=== PATIENT | male | born 1940 | race African-American/Black ===

== ENCOUNTER 2016-08-28 15:51 | Inpatient (IN) | payer MEDICARE, BC ==
--- NOTE | ~2016-08-28 | HP ---
History And Physical [facility] [address] [place]. [address] NAME: JOSE WILLETT : 40 STATUS : ADM Mariaelena PAT#: [id number] AGE: 75 ADM/REG DATE : 08/28/16 MR#: [id number] REPORT SERV DATE: 08/28/16 DICTATED BY: GEOVANI BARNETT DATE: 08/28/16 REPORT STATUS : Draft TRANSCRIBED BY: MODAgustín DATE: 08/28/16 DATE OF ADMISSION: 08/28/2016 POINT OF ENTRY: [facility] Emergency Department. PRIMARY SUPERVISOR HOT DIP TINNING: Symone Leslie M.D. PRIMARY COMMUNITY OUTREACH WORKER: Dr. Nguyen. CHIEF COMPLAINT: Shortness of breath. HISTORY OF PRESENT ILLNESS: Mr. Willett is a 75-year-old gentleman with a history of chronic kidney stage 4, baseline creatinine of approximately 2 to 3 as well as coronary artery disease, prior coronary artery bypass grafting, and presumed history of chronic diastolic congestive heart failure who presents to the emergency room today with reports of shortness of breath. The patient states for the past four to five days he has noticed shortness of breath, primarily dyspnea on exertion as well as orthopnea and PND. The patient also has endorsed some lower extremity edema, nonproductive cough, wheezing. He denies any fevers, night sweats, chills. Denies any chest pain or palpitations. Also feels as if his abdomen is becoming more bloated and tense. He reports compliance with his Lasix as well as fluid and sodium restriction at home. The patient presented to [facility] Emergency Department today with reports of shortness of breath and was told he had some mild fluid on his lungs but was discharged to home. The patient presented back to [facility] for persisting complaints of shortness of breath. Initial evaluation in the emergency department notable for a chest x-ray that is clear. BUN is 39, creatinine 2.72, which is within his baseline. BNP is elevated at 615. Troponin is elevated at 0.63. EKG is nonischemic. The patient was subsequently admitted to the Hospitalist Service for further evaluation and management, however, without being given any Lasix for his elevated BNP level. REVIEW OF SYSTEMS: Comprehensive review of system otherwise negative unless listed in history of present illness. PREVIOUS MEDICAL HISTORY: 1. Chronic kidney stage 4, baseline creatinine of approximately 2.2 to 2.8. 2. Coronary artery disease with prior coronary artery bypass grafting. 3. Hypertension. 4. Hyperlipidemia. 5. Pulmonary hypertension. 6. Ftn-xeubzvo-nruztcqkx diabetes mellitus type 2. 7. Gout. History And Physical [address] [address] NAME: JOSE WILLETT : 40 STATUS : ADM Mariaelena PAT#: [id number] AGE: 75 ADM/REG DATE : 08/28/16 MR#: [id number] REPORT SERV DATE: 08/28/16 DICTATED BY: GEOVANI BARNETT DATE: 08/28/16 REPORT STATUS : Draft TRANSCRIBED BY: MODAgustín DATE: 08/28/16 8. COPD, not on home oxygen. 9. Presumed chronic diastolic congestive heart failure. SURGICAL HISTORY: 1. Coronary artery bypass grafting. 2. Parathyroidectomy. ALLERGIES: NO KNOWN DRUG ALLERGIES. HOME MEDICATIONS: 1. Amlodipine 5 mg daily. 2. Aspirin 81 mg daily. 3. Atorvastatin 40 mg at bedtime. 4. Rocaltrol 0.25 mcg Friday, Friday, and Friday. 5. Colchicine 0.6 mg p.r.n. 6. Diltiazem ER 120 mg daily. 7. Cardura 4 mg b.i.d. 8. Uloric 40 mg daily. 9. Lasix 40 mg b.i.d. 10.Lopressor 12.5 mg b.i.d. 11.Starlix 60 mg t.i.d. 12.Vitamin E 400 units daily. SOCIAL HISTORY: Denies any tobacco, alcohol, or illicits. FAMILY MEDICAL HISTORY: Mother with diabetes. Father with coronary artery disease in his 50s. Siblings with diabetes. LABS AND IMAGIN. White count is 5.5, hemoglobin is 8.9, hematocrit is 26.5, and platelet count is 203. INR is 1.0. 2. Sodium is 142, potassium 4.1, chloride 109, carbon dioxide 23, BUN 39, creatinine 2.72, glucose is 175, calcium is 8.4, and magnesium is 2.5. 3. Troponin 0.63. BNP is 615. 4. Chest x-ray per my review shows no acute cardiopulmonary abnormality. Does show some COPD type changes. 5. EKG per my review shows sinus tachycardia with a right bundle-branch block with some evidence of right ventricular hypertrophy but no evidence of any acute ischemic infarction. Of note, this EKG is largely unchanged from his prior EKG in 2015. PHYSICAL EXAMINATION: VITAL SIGNS: Temperature is 98.2 degrees Fahrenheit, pulse is 105, respirations 16, and saturating 97% on room air. Blood pressure is 177/84. GENERAL: The patient is awake, alert, in no acute distress. Resting comfortably in bed. He is a well-developed, well-nourished, elderly male. HEENT: Atraumatic and normocephalic. Moist mucous membranes. Pupils are equal, round, reactive to light and accommodation. Extraocular eye movements intact. No scleral icterus. History And Physical [address] [address] NAME: JOSE WILLETT : 40 STATUS : ADM Mariaelena PAT#: [id number] AGE: 75 ADM/REG DATE : 08/28/16 MR#: [id number] REPORT SERV DATE: 08/28/16 DICTATED BY: GEOVANI BARNETT DATE: 08/28/16 REPORT STATUS : Draft TRANSCRIBED BY: AGUSTÍN DATE: 08/28/16 NECK: No jugular venous distention. No carotid bruits. CARDIAC: Regular rate and rhythm. A 2/6 systolic murmur heard best over the left lower sternal border. LUNGS: Does have some mild inspiratory rales in the bilateral bases. ABDOMEN: Obese, soft, nontender, nondistended. Good bowel sounds. No rebound, guarding, or rigidity. EXTREMITIES: Warm and well perfused. No cyanosis or clubbing. Does have 2+ pitting edema bilaterally. SKIN: Warm and dry. PSYCH: Affect appropriate. NEURO: Alert and oriented x3. Cranial nerves 2 through 12 grossly intact. Speech is normal. Gait is not assessed. ASSESSMENT: Mr. Willett is a 75-year-old gentleman with history of hypertension, chronic kidney disease 4, diabetes, as well as presumed chronic diastolic congestive heart failure, who presents to emergency room today with reports of shortness of breath and volume overload. PROBLEM LIST: 1. Acute on chronic diastolic congestive heart failure. 2. Chronic kidney disease, stage 4. 3. Elevated troponin level. 4. Shortness of breath. 5. Hypertension. 6. Dmh-tjabsxi-ureibepkf diabetes mellitus type 2. PLAN: 1. Acute on chronic diastolic congestive heart failure. We will convert the patient's oral Lasix over to IV Lasix, place on fluid and sodium restriction. We will consult Cardiology for assistance. We will repeat an echocardiogram as his last one was in 2014, which at that time, showed preserved ejection fraction with some mild pulmonary hypertension but no comment on diastolic dysfunction. 2. Chronic kidney disease stage 4, appears to be within his baseline. We will continue to monitor as we diurese. 3. Elevated troponin level. The patient denies chest pain. His EKG is nonischemic. I suspect this is likely due to acute on chronic diastolic congestive heart failure as well as his underlying CKD. We will continue to trend out cardiac enzymes. Continue the patient's aspirin, statin, as well as beta tami. Dr. Goins of the emergency department contacted Cardiology, and they did not recommend heparin drip at this time. 4. Diabetes. Place him on level 2 insulin sliding scale. 5. Hypertension. Continue patient's home antihypertensives as well as IV hydralazine p.r.n. 6. DVT prophylaxis. Heparin subcu. DICTATION ENDS HERE History And Physical [address] [address] NAME: JOSE WILLETT : 40 STATUS : ADM Mariaelena PAT#: [id number] AGE: 75 ADM/REG DATE : 08/28/16 MR#: [id number] REPORT SERV DATE: 08/28/16 DICTATED BY: GEOVANI BARNETT DATE: 08/28/16 REPORT STATUS : Draft TRANSCRIBED BY: AGUSTÍN DATE: 08/28/16 JOSEY/AGUSTÍN Geovani Barnett MD / [id number] CC: Arnav Montiel Jr, MD David Phillips, M.D. Ondrej J Lisy, M.D.
--- NOTE | ~2016-08-28 | CN ---
Consultation Report [facility] [address] [place]. [address] NAME: JOSE VANEGAS : 40 STATUS : ADM Mariaelena PAT#: [id number] AGE: 75 ADM/REG DATE : 08/28/16 MR#: [id number] REPORT SERV DATE: 08/29/16 DICTATED BY: MARIOLA QUISPE DATE: 08/29/16 REPORT STATUS : Draft TRANSCRIBED BY: MODAgustín DATE: 08/29/16 CARDIOLOGY CONSULT DATE OF CONSULTATION: REFERRING REASON: Heart failure exacerbation and elevated troponin. HISTORY OF PRESENT ILLNESS: This is a pleasant 75-year-old gentleman, well known to me from [facility], who presented to the emergency room for several days lasting dyspnea on exertion and lower extremity edema. He was found to be in heart failure exacerbation, admitted to Hospitalist Service. He was also found to have a mild troponin elevation. The patient denied any chest pain whatsoever. He denied any palpitations, syncope, fever, or chills. He is still very physically active. He was getting more tired after he was doing lawn mowing a few days ago. Of note, the patient has known coronary artery disease with remote history of CABG two vessel in 1999, with negative nuclear cardiac stress in 2013 and preserved systolic function with EF 60% in 2014 with vfke-mi-bvvbkvoi TR and some diastolic dysfunction. He is also status post atrial flutter ablation in 2014, but remained in normal sinus rhythm with some chronic right bundle-branch block. The patient remains hemodynamically stable. He is ambulating now in the CDU without any difficulties or shortness of breath. Unfortunately, he has underlying stage 4 chronic kidney disease now with creatinine of 2.5 and BUN 39. He started diuresing and was put on fluid restriction. REVIEW OF SYSTEMS: The rest of the review of systems is negative. PAST MEDICAL HISTORY: 1. Coronary artery disease with history of two-vessel CABG in 1999, with negative nuclear cardiac stress test for ischemia in 2013. 2. Preserved systolic function with EF 60% by echo in 2014 with hmbv-xu-foefakjs TR and some diastolic dysfunction. 3. Stage 4 chronic kidney disease. 4. Hypertension, hyperlipidemia, and diabetes mellitus. 5. Chronic right bundle-branch block. 6. History of atrial flutter ablation by Dr. Bradley in 2014. 7. Anticoagulation stopped by Dr. Bradley in 2016. 8. Peripheral artery disease. ALLERGIES: NO KNOWN DRUG ALLERGIES. SOCIAL HISTORY: The patient is single. He lives independently. Very active. He quit smoking 30 years ago. Smoked for few years. Denies drinking, alcohol, or using street drugs. Consultation Report [facility] [address] [place]. [address] NAME: JOSE VANEGAS : 40 STATUS : ADM Mariaelena PAT#: [id number] AGE: 75 ADM/REG DATE : 08/28/16 MR#: [id number] REPORT SERV DATE: 08/29/16 DICTATED BY: MARIOLA QUISPE DATE: 08/29/16 REPORT STATUS : Draft TRANSCRIBED BY: AGUSTÍN DATE: 08/29/16 FAMILY HISTORY: Negative for sudden cardiac and premature coronary artery disease in the family. HOME MEDICATIONS: Amlodipine 5 mg once a day, aspirin 81 mg once a day, atorvastatin 40 mg once a day, calcitriol three times a week, colchicine as needed, Cardizem CD 120 mg once a day, Cardura 4 mg twice a day, Uloric 40 mg once a day, Lasix 40 mg twice a day, Lopressor 12.5 mg twice a day, and Starlix three times a day. PHYSICAL EXAMINATION: GENERAL: No acute distress. VITAL SIGNS: Blood pressure 170/80, heart rate 90 and regular. HEENT: Pupils reactive to light and accommodation. Moist mucosa membrane. NECK: No JVD. Normal carotid upstroke. No carotid bruits. LUNGS: Occasionally crackles at the bases. The patient is ambulating without any difficulties or shortness of breath. COR: Normal S1, S2. No S3 or S4. No significant rub or murmurs. ABDOMEN: Distended, nontender. EXTREMITIES: Lower extremity, 1+ edema around the ankles with decreased pedal pulses bilaterally. SKIN: Warm with normal turgor. MUSCULOSKELETAL: No kyphosis. NEURO/PSYCH: Alert and oriented. Nonfocal. DATA: CBC remarkable for hemoglobin 8.9, now 9.4. BNP is 614. Creatinine is 2.5. His BUN 39. Troponin 0.63 yesterday and today is 0.49. Chest x-ray shows some signs of COPD, prior CABG, but no obvious significant fluid overload. Electrocardiogram revealed what looks like to be sinus tachycardia 105 beats per minute with chronic right bundle-branch block and nonspecific ST-segment changes in anterolateral leads. ASSESSMENT AND PLAN: 1. Fluid overload in the setting of diastolic dysfunction. 2. Elevated troponin, likely demand ischemia. 3. Chronic kidney disease, stage 4. The patient is hemodynamically stable. He will be put on fluid restriction, low-sodium diet. I agree on intravenous gentle diuresis. We will also do echocardiogram to assess the regional wall motion abnormalities and diastolic function. I will add Plavix into his low dose of aspirin. We are going to increase metoprolol to 25 mg twice a day. We will repeat the troponin. In case that it will increase again, we will need to ask the Nephrology colleagues to see him before we will proceed with coronary arteriogram, but at the present time without evidence of chest pain and while he remains hemodynamically stable with mild troponin elevation, I would not proceed with coronary arteriogram not to further compromise his kidney function. Consultation Report [address] [place]. [address] NAME: JOSE VANEGAS : 40 STATUS : ADM Mariaelena PAT#: [id number] AGE: 75 ADM/REG DATE : 08/28/16 MR#: [id number] REPORT SERV DATE: 08/29/16 DICTATED BY: MARIOLA QUISPE DATE: 08/29/16 REPORT STATUS : Draft TRANSCRIBED BY: AGUSTÍN DATE: 08/29/16 CYRUS/AGUSTÍN Mariola Quispe M.D. / [id number] CC: Jenifer Sandhu M.D.
--- NOTE | ~2016-08-28 | DS ---
Discharge Summary [facility] [address] [place]. [address] NAME: JOSE VANEGAS : 40 STATUS : DIS IN PAT#: [id number] AGE: 75 ADM/REG DATE : 08/29/16 MR#: [id number] REPORT SERV DATE: 09/03/16 DICTATED BY: DATE: REPORT STATUS : Draft TRANSCRIBED BY: MODL DATE: 09/02/16 ADMISSION DATE: 08/29/2016 DISCHARGE DATE: 09/02/2016 DISCHARGE DIAGNOSES: 1. Acute on chronic diastolic heart failure with preserved ejection fraction. 2. Shortness of breath secondary to volume overload. 3. Elevated troponin due to demand ischemia. 4. Hypertension. 5. Chronic kidney disease stage 4. 6. Diabetes mellitus with hyperglycemia. 7. Coronary artery disease with a history of coronary artery bypass grafting. 8. Anemia secondary to chronic kidney disease. 9. Hyperlipidemia. 10.Atypical A flutter. CONSULTATIONS: 1. Cardiology, Dr. Leslie. 2. Electrophysiology, Dr. Jarrell. PROCEDURES AND IMAGIN08/28/2016, chest PA and lateral showed 1. Interval resolution of the left upper lobe pneumonia. 2. Chronic obstructive pulmonary disease. 3. No acute lung infiltrates. 09/01/2016, chest PA and lateral showed 1. No acute cardiopulmonary disease. 2. Stable CABG. 3. 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 4. Stable surgical clips in the right thyroid bed. 08/29/2016, echocardiogram showed ejection fraction of 50% with moderate to severe tricuspid regurg, mild pulmonary hypertension, mild enlarged right ventricle with mild hypocontractility, normal left ventricular size. 09/02/2016, Lexiscan stress test with Myoview for risk stratification was moderately high risk. HOSPITAL COURSE: This is a very pleasant 75-year-old black gentleman with a history of chronic kidney disease stage 4 with baseline creatinine of approximately 2 to 3 as well as coronary artery disease with a history of coronary artery bypass grafting and chronic diastolic congestive heart failure with preserved ejection fraction. Please see admission H and P on 08/28/[address] Onur Corbett for complete details regarding the patient's admission. In brief, the patient was admitted by Dr. Corbett for workup of his volume overload due to acute on chronic diastolic congestive heart failure and elevated troponin. The patient has had a relatively uncomplicated hospital course. During his stay, his troponin levels were initially 0.49 which elevated up to 0.99, now have trended down to 0.34. Cardiology was consulted regarding his elevated troponins. Please see consultation Discharge Summary [facility] [place]. [address] NAME: JOSE VANEGAS : 40 STATUS : DIS IN PAT#: [id number] AGE: 75 ADM/REG DATE : 08/29/16 MR#: [id number] REPORT SERV DATE: 09/03/16 DICTATED BY: DATE: REPORT STATUS : Draft TRANSCRIBED BY: MODL DATE: 09/02/16 report on 08/29/[address] Symone Leslie. The patient developed an atypical atrial flutter and was seen by public works director, Dr. Jarrell, on 08/30/2016. The patient does have a history of a previous ablation by Dr. Acevedo in 2014. The patient did present with some significant lower extremity edema which has now resolved. The patient has been instructed by Heart Failure Team on his fluid restrictions and his daily weights and has been instructed also by dietitian on his Coumadin diet. PHYSICAL EXAMINATION: VITAL SIGNS: Blood pressure is 177/84, heart rate is 66, respirations are 18, O2 saturation is 97% on room air, and temperature is 97.6. HEENT: Head is atraumatic and normocephalic. Pupils are equal, round, reactive to light. Sclerae are clear and nonicteric. The patient has good dentition with multiple gold fillings. NECK: Neck is supple with no obvious thyromegaly or lymphadenopathy. Neck veins are flat. CARDIAC: The patient is in irregular rate with no obvious murmurs, rubs, or gallops. LUNGS: Occasional expiratory crackles in bilateral bases but has normal respiratory effort. GI: Abdomen is soft and nontender with active bowel sounds in all four quadrants. Last bowel movement was 09/01/2016. No palpable organomegaly. EXTREMITIES: The patient has no significant edema, clubbing, or cyanosis. Dorsalis pedis and posterior tibial pulses are present and equal bilaterally. MUSCULOSKELETAL: The patient moves all extremities x four. He is ambulatory without assistance. No difficulties with balance. SKIN: Skin is warm and dry with normal color and turgor. NEUROPSYCH: The patient is alert and oriented x four, pleasant, cooperative. Cranial nerves II through XII are grossly intact. The patient does exhibit some short-term memory loss and needs extended explanations and repetitive teaching. DISCHARGE DIET: The patient will be going home on a 2 g-sodium, 1800-calorie, Coumadin diet. The patient will have one liter fluid restriction. Per discussion with Dr. Leslie, the patient does not need to have a therapeutic INR to be discharged. The patient will be following up with Nephrology as scheduled. The patient does have a friend named Aida who assists him with his medication and his food and will be keeping a daily weight log and takes him to his appointments. Extensive instructions were also given to her on how to administer medications and how to distribute his fluids due to his one liter fluid restriction. DISCHARGE MEDICATIONS: 1. Amlodipine 5 mg daily. 2. Aspirin 81 mg daily. 3. Atorvastatin 40 mg daily. 4. Calcitriol 0.25 mcg Friday, Friday, and Friday. 5. Cardia XT 120 mg daily. 6. Cardura 4 mg twice daily. 7. Uloric 40 mg daily. 8. Lopressor 12.5 mg twice daily. 9. Vitamin E 400 units daily. 10.Warfarin 5 mg daily. Discharge Summary [address] [address] NAME: JOSE VANEGAS : 40 STATUS : DIS IN PAT#: [id number] AGE: 75 ADM/REG DATE : 08/29/16 MR#: [id number] REPORT SERV DATE: 09/03/16 DICTATED BY: DATE: REPORT STATUS : Draft TRANSCRIBED BY: AGUSTÍN DATE: 09/02/16 11.Starlix 60 mg three times daily. 12.Lasix 40 mg twice daily. 13.Colchicine 0.6 mg p.r.n. gout flare-up. ALLERGIES: THE PATIENT STATES NO KNOWN DRUG ALLERGIES. DISCHARGE INSTRUCTIONS: The patient is to follow up with Nephrology as previously scheduled. The patient is to take daily weights. Has one liter fluid restriction. The patient is following up with Dr. Baron Palomares in seven days and Dr. Leslie in three to four weeks. The patient is to follow up at [facility] for an INR on 09/03. Should the patient have excessive weight gain of greater than three to five pounds in one week or two to three pounds overnight, should the patient have any more extended shortness of breath or chest pain, patient should call Dr. Leslie or present to the Emergency Department. Approximately 40 minutes have been spent coordinating discharge care of this patient including [id number] encounter and summarization of the discharge. GOLDY/AGUSTÍN Sallie Herrera NP / [id number] CC: Jenifer Sandhu M.D. Gregory Keith Bruce, M.D. Ondrej J Lisy, M.D.
--- NOTE | ~2016-08-28 | CN ---
Consultation Report [facility] [address] [place]. [address] NAME: ARCELIA WILLETT : 40 STATUS : ADM IN PAT#: [id number] AGE: 75 ADM/REG DATE : 08/29/16 MR#: [id number] REPORT SERV DATE: 08/30/16 DICTATED BY: COLIN JARRELL DATE: 08/30/16 REPORT STATUS : Draft TRANSCRIBED BY: MODL DATE: 08/30/16 ELECTROPHYSIOLOGY CONSULTATION DATE OF CONSULTATION: 08/30/2016 INDICATIONS: Atypical atrial flutter. HISTORY OF PRESENT ILLNESS: Arcelia Willett is a very pleasant 75-year-old male, admitted on 08/29/2016 with shortness of breath, elevated troponin. He has a history of coronary artery disease, previous bypass graft in 1999, history of normal LV systolic function, chronic kidney disease, followed by Nephrology, diabetes, previous right atrial flutter ablation by Dr. Acevedo in 2014, gout, hypertension, pneumonia. The patient has received diuretics. While here, he was noted to have what appears to be atrial flutter. See description below. Electrophysiology is consulted. The patient reports no sensation of palpitations or arrhythmia. No syncope or presyncope. His shortness of breath, which has been ongoing for several days prior to presentation has significantly improved. No complaints of angina. His troponin peaked at 0.99, BNP was 614. Electrocardiograms are reviewed. ECG from 08/28/2016 at 1546 hours is 2:1 atypical atrial flutter, from 08/30/2016 at 04:17 a.m. is 3:1 atypical atrial flutter. Otherwise, the patient has an underlying right bundle left anterior fascicular block pattern. PRESENT MEDICATIONS: Amlodipine, aspirin, atorvastatin, calcitriol, Plavix, diltiazem, doxazosin, subcu heparin. metoprolol tartrate 25 b.i.d., and sliding scale insulin. ALLERGIES: NONE KNOWN. SOCIAL HISTORY: No present smoking. FAMILY HISTORY: Reviewed and noncontributory. REVIEW OF SYSTEMS: As per the HPI. Otherwise, all other review of systems negative. PHYSICAL EXAMINATION: VITAL SIGNS: Blood pressure of 166/77, pulse is 79, respiratory rate is 18. GENERAL: Appears stated age, no distress. Urine output 3300 mL over the last 24 hours. Shortness of breath has significantly improved. EYES: Sclerae anicteric, no arcus senilis. MOUTH: Oral mucosa moist, lips acyanotic. NECK: Jugular venous pressure normal, no carotid bruits. LUNGS: Clear to auscultation bilaterally, normal inspiratory effort. CARDIAC: Regular rate and irregular rhythm, no murmurs, gallops or rubs. Consultation Report [facility] [address] [place]. [address] NAME: ARCELIA WILLETT : 40 STATUS : ADM IN PAT#: [id number] AGE: 75 ADM/REG DATE : 08/29/16 MR#: [id number] REPORT SERV DATE: 08/30/16 DICTATED BY: COLIN JARRELL DATE: 08/30/16 REPORT STATUS : Draft TRANSCRIBED BY: AGUSTÍN DATE: 08/30/16 ABDOMEN: Soft, nondistended, nontender. EXTREMITIES: No edema. SKIN: Warm and dry. NEURO/PSYCH: Alert and oriented, nonfocal, mood appropriate. ECG as described above. LABORATORY DATA: Potassium 4.1, creatinine 2.5. Hemoglobin 8.9. BNP 614. Troponin 0.99. Echocardiogram demonstrates ejection fraction of 50%, [id number]-hi-fhkcnk tricuspid regurgitation. IMPRESSION: 1. Atypical atrial flutter. 2. Previous ablation for right atrial flutter. 3. Acute diastolic heart failure. 4. Chronic kidney disease. 5. Coronary artery disease with previous bypass grafting. 6. Diabetes. RECOMMENDATIONS: Discontinue Plavix. Begin warfarin with a goal INR between 2 and 3. Increase Cardizem CD to 120 b.i.d. Continue metoprolol 25 b.i.d. Continue aspirin 81 mg daily. PLAN: For elective external cardioversion after the patient is therapeutically anticoagulated. Likely will need KATIE prior unless the patient has four weeks of therapeutic INR. DARIELA/AGUSTÍN Colin Jarrell M.D. / [id number] CC: Jenifer Sandhu M.D.
[~2016-08-28 15:51] MED LIST: ADVAIR250 INH; AMARYL1 MG PO; ASAB PO; ASABAYER PO; ATEN25 PO; BETAPACE80 PO; CARD120 PO; CARDCD300 PO; CARDIZEM LA360 MG PO; CARDU4 PO; COLCRYS0.6 MG PO; COMBIVENT INH; CRESTOR5 MG PO; ELIQUIS 5 MG TAB5 MG PO; FLONASE NAS; HUMI PO; L20 PO; L40 PO; LIPITOR80 MG PO; LORTAB 5 PO; MEDROLPAK4 PO; MVI PO; MYFERON 150150 MG OR; NITROSTAT0.4 MG SL; NORV10 PO; PCET PO; PRAVAC PO; PROTONIX PO; STARLIX60 PO; ULORIC40 MG PO; VITAMIN D31000 UNIT PO; [UNRECOGNIZED DRUG - REMARK]
[2016-08-28 16:04] LABS: BASOPHILS 0.2 %; BASOPHILS ABSOLUTE 0.01 10/3/uL (0.0-0.16); EOSINOPHILS 1.7 %; EOSINOPHILS ABSOLUTE 0.09 10/3/uL (0.0-0.53); ER CBC TAT 0 Hrs 03 Mins; IMMATURE GRANULOCYTES 0.2 %; IMMATURE GRANULOCYTES ABSOLUTE 0.01 10/3/uL (0.0-0.11); LYMPHOCYTES 12.5 %; LYMPHOCYTES ABSOLUTE 0.66 10/3/uL (0.67-4.30); MEAN CORPUS HGB CONC 33.6 g/dL (32.0-36.0); MEAN CORPUSCULAR VOLUME 86.3 fL (80-100); MEAN PLATELET VOLUME 8.1 fL (9.2-13.0); MONOCYTES 12.3 %; MONOCYTES ABSOLUTE 0.65 10/3/uL (0.21-1.20); NEUTROPHILS 73.1 %; NEUTROPHILS ABSOLUTE 3.87 10/3/uL (2.02-8.40); PLATELET COUNT 203 10/3/uL (150-400); RBC DISTRIBUTION WIDTH 13.9 % (12.0-16.0); WHITE BLOOD CELLS 5.3 10/3/uL (4.5-10.5)
[2016-08-28 16:05] LABS: HEMATOCRIT 26.5 % (40.0-51.0); HEMOGLOBIN 8.9 g/dL (13.6-17.8); MANUAL DIFF NO %; RED CELL COUNT 3.07 10/6/uL (4.7-6.1)
[2016-08-28 16:12] LABS: INTERNATIONAL NORMAL RATI 1.3 UNITS (-); PARTIAL THROMBO TIME 35.1 SEC (22.5-37.2); PROTIME (NOT ORD) 15.6 SEC (12.0-14.5)
[2016-08-28 16:20] LABS: CHLORIDE, SERUM 109 MMOL/L (96-112); CO2 (CARBON DIOXIDE) 23 MMOL/L (24-34); GLUCOSE, SERUM 175 MG/DL (60-99); POTASSIUM, SERUM 4.1 MMOL/L (3.5-5.3); SODIUM, SERUM 142 MMOL/L (135-148)
[2016-08-28 16:21] LABS: BUN (BLOOD UREA NITROGEN) 39 MG/DL (6-23); CALCIUM, SERUM 8.4 MG/DL (8.5-10.4); CREATININE 2.72 MG/DL (0.70-1.30); GFR AFRICAN AMERICAN 25 ML/MIN (>=60); GFR NON AFRICAN AMERICAN 22 ML/MIN (>=60)
[2016-08-28 16:25] LABS: CHEST PAIN PROFILE TAT 0 Hrs 24 Mins; TROPONIN I 0.63 NG/ML (<0.05)
[2016-08-28] MEDS ORDERED: HALF81 PO (17:54)
[2016-08-28] MEDS ORDERED: CARTIA XT120 MG/24 PO (17:54)
[2016-08-28] MEDS ORDERED: VITE PO (17:54)
[2016-08-28] MEDS ORDERED: ROCALTROL 0.0.25 MCG PO (17:55)
[2016-08-28] MEDS ORDERED: L40 PO (17:55)
[2016-08-28] MEDS ORDERED: LIPITOR40 PO (17:55)
[2016-08-28] MEDS ORDERED: STARLIX60 PO (17:55)
[2016-08-28] MEDS ORDERED: NORV5 PO (17:55)
[2016-08-28] MEDS ORDERED: CARDU4 PO (17:56)
[2016-08-28] MEDS ORDERED: ULORIC40 MG PO (17:56)
[2016-08-28] MEDS ORDERED: COLCRYS0.6 MG PO (17:56)
[2016-08-28] MEDS ORDERED: LOP25 PO (17:56)
[2016-08-29 01:41] LABS: CPK 408 U/L (0-200)
[2016-08-29 01:44] LABS: CK-MB 4.8 NG/ML; TROPONIN I 0.49 NG/ML (<0.05)
[2016-08-29 06:05] LABS: BASOPHILS 0.4 %; BASOPHILS ABSOLUTE 0.02 10/3/uL (0.0-0.16); EOSINOPHILS 2.2 %; EOSINOPHILS ABSOLUTE 0.11 10/3/uL (0.0-0.53); HEMATOCRIT 27.7 % (40.0-51.0); HEMOGLOBIN 9.4 g/dL (13.6-17.8); IMMATURE GRANULOCYTES 0.2 %; IMMATURE GRANULOCYTES ABSOLUTE 0.01 10/3/uL (0.0-0.11); LYMPHOCYTES 13.7 %; MEAN CORPUS HGB CONC 33.9 g/dL (32.0-36.0); MEAN CORPUSCULAR HEMOGLOB 28.7 pg (26.0-34.0); MEAN CORPUSCULAR VOLUME 84.7 fL (80-100); MEAN PLATELET VOLUME 8.8 fL (9.2-13.0); MONOCYTES ABSOLUTE 0.56 10/3/uL (0.21-1.20); NEUTROPHILS 72.5 %; NEUTROPHILS ABSOLUTE 3.71 10/3/uL (2.02-8.40); PLATELET COUNT 224 10/3/uL (150-400); RED CELL COUNT 3.27 10/6/uL (4.7-6.1); WHITE BLOOD CELLS 5.1 10/3/uL (4.5-10.5)
[2016-08-29 06:06] LABS: MANUAL DIFF NO %
[2016-08-29 06:15] LABS: BUN (BLOOD UREA NITROGEN) 39 MG/DL (6-23); CALCIUM, SERUM 9.1 MG/DL (8.5-10.4); CHLORIDE, SERUM 110 MMOL/L (96-112); CO2 (CARBON DIOXIDE) 21 MMOL/L (24-34); CREATININE 2.54 MG/DL (0.70-1.30); GFR AFRICAN AMERICAN 28 ML/MIN (>=60); GFR NON AFRICAN AMERICAN 24 ML/MIN (>=60); POTASSIUM, SERUM 3.9 MMOL/L (3.5-5.3); SODIUM, SERUM 143 MMOL/L (135-148)
[2016-08-29 06:17] LABS: GLUCOSE, SERUM 100 MG/DL (60-99)
[2016-08-29 10:53] LABS: CK-MB 5.2 NG/ML; CPK 422 U/L (0-200)
[2016-08-29 10:54] LABS: CKMB INDEX (NOT ORD) 1.2; TROPONIN I 0.85 NG/ML (<0.05)
[2016-08-30 04:50] LABS: BASOPHILS 0.2 %; BASOPHILS ABSOLUTE 0.01 10/3/uL (0.0-0.16); EOSINOPHILS 3.9 %; EOSINOPHILS ABSOLUTE 0.21 10/3/uL (0.0-0.53); HEMATOCRIT 26.5 % (40.0-51.0); HEMOGLOBIN 8.9 g/dL (13.6-17.8); IMMATURE GRANULOCYTES 0.4 %; IMMATURE GRANULOCYTES ABSOLUTE 0.02 10/3/uL (0.0-0.11); LYMPHOCYTES 13.5 %; LYMPHOCYTES ABSOLUTE 0.72 10/3/uL (0.67-4.30); MEAN CORPUS HGB CONC 33.6 g/dL (32.0-36.0); MEAN CORPUSCULAR HEMOGLOB 28.7 pg (26.0-34.0); MEAN CORPUSCULAR VOLUME 85.5 fL (80-100); MEAN PLATELET VOLUME 8.8 fL (9.2-13.0); MONOCYTES 11.1 %; MONOCYTES ABSOLUTE 0.59 10/3/uL (0.21-1.20); NEUTROPHILS 70.9 %; NEUTROPHILS ABSOLUTE 3.78 10/3/uL (2.02-8.40); PLATELET COUNT 239 10/3/uL (150-400); RBC DISTRIBUTION WIDTH 14.1 % (12.0-16.0); WHITE BLOOD CELLS 5.3 10/3/uL (4.5-10.5)
[2016-08-30 04:51] LABS: MANUAL DIFF NO %
[2016-08-30 04:58] LABS: ALBUMIN 2.7 G/DL (3.5-5.0); CALCIUM, SERUM 8.6 MG/DL (8.5-10.4); CHLORIDE, SERUM 110 MMOL/L (96-112); CREATININE 2.58 MG/DL (0.70-1.30); GFR AFRICAN AMERICAN 27 ML/MIN (>=60); GFR NON AFRICAN AMERICAN 23 ML/MIN (>=60); POTASSIUM, SERUM 4.1 MMOL/L (3.5-5.3); SODIUM, SERUM 144 MMOL/L (135-148)
[2016-08-30 05:11] LABS: BUN (BLOOD UREA NITROGEN) 43 MG/DL (6-23); CO2 (CARBON DIOXIDE) 26 MMOL/L (24-34); GLUCOSE, SERUM 141 MG/DL (60-99); TROPONIN I 0.99 NG/ML (<0.05)
[2016-08-31 05:00] LABS: BASOPHILS 0.4 %; BASOPHILS ABSOLUTE 0.02 10/3/uL (0.0-0.16); EOSINOPHILS 3.7 %; EOSINOPHILS ABSOLUTE 0.18 10/3/uL (0.0-0.53); HEMATOCRIT 26.7 % (40.0-51.0); HEMOGLOBIN 8.9 g/dL (13.6-17.8); IMMATURE GRANULOCYTES 0.4 %; IMMATURE GRANULOCYTES ABSOLUTE 0.02 10/3/uL (0.0-0.11); LYMPHOCYTES 17.2 %; LYMPHOCYTES ABSOLUTE 0.83 10/3/uL (0.67-4.30); MANUAL DIFF NO %; MEAN CORPUS HGB CONC 33.3 g/dL (32.0-36.0); MEAN CORPUSCULAR HEMOGLOB 28.7 pg (26.0-34.0); MEAN CORPUSCULAR VOLUME 86.1 fL (80-100); MEAN PLATELET VOLUME 9.1 fL (9.2-13.0); MONOCYTES 13.5 %; MONOCYTES ABSOLUTE 0.65 10/3/uL (0.21-1.20); NEUTROPHILS 64.8 %; NEUTROPHILS ABSOLUTE 3.12 10/3/uL (2.02-8.40); PLATELET COUNT 252 10/3/uL (150-400); WHITE BLOOD CELLS 4.8 10/3/uL (4.5-10.5)
[2016-08-31 05:06] LABS: INTERNATIONAL NORMAL RATI 1.2 UNITS (-); PROTIME (NOT ORD) 14.9 SEC (12.0-14.5)
[2016-08-31 05:17] LABS: ALBUMIN 2.6 G/DL (3.5-5.0); BUN (BLOOD UREA NITROGEN) 44 MG/DL (6-23); CALCIUM, SERUM 8.4 MG/DL (8.5-10.4); CHLORIDE, SERUM 111 MMOL/L (96-112); CO2 (CARBON DIOXIDE) 25 MMOL/L (24-34); CREATININE 2.52 MG/DL (0.70-1.30); GFR AFRICAN AMERICAN 28 ML/MIN (>=60); GFR NON AFRICAN AMERICAN 24 ML/MIN (>=60); GLUCOSE, SERUM 163 MG/DL (60-99); PHOSPHORUS, SERUM 3.9 MG/DL (2.5-4.5); POTASSIUM, SERUM 4.2 MMOL/L (3.5-5.3); SODIUM, SERUM 144 MMOL/L (135-148)
[2016-08-31 05:19] LABS: TROPONIN I 0.75 NG/ML (<0.05)
[2016-09-01 05:05] LABS: BASOPHILS 0.2 %; BASOPHILS ABSOLUTE 0.01 10/3/uL (0.0-0.16); EOSINOPHILS 2.2 %; EOSINOPHILS ABSOLUTE 0.14 10/3/uL (0.0-0.53); HEMATOCRIT 28.3 % (40.0-51.0); HEMOGLOBIN 9.3 g/dL (13.6-17.8); IMMATURE GRANULOCYTES 0.6 %; IMMATURE GRANULOCYTES ABSOLUTE 0.04 10/3/uL (0.0-0.11); LYMPHOCYTES 18.6 %; LYMPHOCYTES ABSOLUTE 1.16 10/3/uL (0.67-4.30); MEAN CORPUS HGB CONC 32.9 g/dL (32.0-36.0); MEAN CORPUSCULAR HEMOGLOB 28.5 pg (26.0-34.0); MEAN CORPUSCULAR VOLUME 86.8 fL (80-100); MEAN PLATELET VOLUME 8.7 fL (9.2-13.0); MONOCYTES 12.4 %; MONOCYTES ABSOLUTE 0.77 10/3/uL (0.21-1.20); NEUTROPHILS ABSOLUTE 4.11 10/3/uL (2.02-8.40); PLATELET COUNT 273 10/3/uL (150-400); RBC DISTRIBUTION WIDTH 14.2 % (12.0-16.0); RED CELL COUNT 3.26 10/6/uL (4.7-6.1); WHITE BLOOD CELLS 6.2 10/3/uL (4.5-10.5)
[2016-09-01 05:08] LABS: MANUAL DIFF NO %
[2016-09-01 05:12] LABS: INTERNATIONAL NORMAL RATI 1.2 UNITS (-)
[2016-09-01 05:16] LABS: ALBUMIN 3.1 G/DL (3.5-5.0); BUN (BLOOD UREA NITROGEN) 47 MG/DL (6-23); CALCIUM, SERUM 8.7 MG/DL (8.5-10.4); CHLORIDE, SERUM 111 MMOL/L (96-112); CO2 (CARBON DIOXIDE) 25 MMOL/L (24-34); CREATININE 2.73 MG/DL (0.70-1.30); GFR AFRICAN AMERICAN 25 ML/MIN (>=60); GFR NON AFRICAN AMERICAN 22 ML/MIN (>=60); GLUCOSE, SERUM 164 MG/DL (60-99); PHOSPHORUS, SERUM 3.5 MG/DL (2.5-4.5); POTASSIUM, SERUM 4.3 MMOL/L (3.5-5.3); SODIUM, SERUM 143 MMOL/L (135-148)
[2016-09-02 05:03] LABS: BASOPHILS 0.3 %; BASOPHILS ABSOLUTE 0.02 10/3/uL (0.0-0.16); EOSINOPHILS 3.3 %; HEMATOCRIT 26.8 % (40.0-51.0); HEMOGLOBIN 8.9 g/dL (13.6-17.8); IMMATURE GRANULOCYTES ABSOLUTE 0.06 10/3/uL (0.0-0.11); LYMPHOCYTES 15.6 %; LYMPHOCYTES ABSOLUTE 0.94 10/3/uL (0.67-4.30); MEAN CORPUS HGB CONC 33.2 g/dL (32.0-36.0); MEAN CORPUSCULAR HEMOGLOB 29.3 pg (26.0-34.0); MEAN CORPUSCULAR VOLUME 88.2 fL (80-100); MEAN PLATELET VOLUME 8.8 fL (9.2-13.0); MONOCYTES 10.4 %; MONOCYTES ABSOLUTE 0.63 10/3/uL (0.21-1.20); NEUTROPHILS 69.4 %; NEUTROPHILS ABSOLUTE 4.19 10/3/uL (2.02-8.40); PLATELET COUNT 250 10/3/uL (150-400); RBC DISTRIBUTION WIDTH 14.2 % (12.0-16.0); RED CELL COUNT 3.04 10/6/uL (4.7-6.1)
[2016-09-02 05:04] LABS: MANUAL DIFF NO %
[2016-09-02 05:26] LABS: BUN (BLOOD UREA NITROGEN) 48 MG/DL (6-23); CALCIUM, SERUM 8.9 MG/DL (8.5-10.4); CHLORIDE, SERUM 113 MMOL/L (96-112); CO2 (CARBON DIOXIDE) 22 MMOL/L (24-34); CREATININE 2.61 MG/DL (0.70-1.30); GFR AFRICAN AMERICAN 27 ML/MIN (>=60); GFR NON AFRICAN AMERICAN 23 ML/MIN (>=60); POTASSIUM, SERUM 4.7 MMOL/L (3.5-5.3); SODIUM, SERUM 143 MMOL/L (135-148)
[2016-09-02 05:27] LABS: GLUCOSE, SERUM 116 MG/DL (60-99); TROPONIN I 0.34 NG/ML (<0.05)
[2016-09-02 05:29] LABS: INTERNATIONAL NORMAL RATI 1.3 UNITS (-); PROTIME (NOT ORD) 16.3 SEC (12.0-14.5)
[2016-09-02] MEDS ORDERED: JANTOVEN1 MG PO (17:23)
[2016-10-22] MEDS ORDERED: ATEN25 PO (16:45)
[2016-10-22] MEDS ORDERED: CRESTOR5 MG PO (16:47)
[2016-10-22] MEDS ORDERED: NORCO1 TA1 PO (16:48)
[2016-10-22] MEDS ORDERED: NITROSTAT0.4 MG SL (16:50)
[2016-10-22] MEDS ORDERED: VITAMIN D31000 UNIT PO (16:51)
== END 2016-09-02 18:15 | disposition home or self-care (01) | DRG 291 ==
LOC: ER 15:51 → CDU1 20:16 → 7NO 08-30 08:33
PROVIDERS: Emergency Medicine; Internal Medicine; Internal Medicine Cardiovascular Disease; Nurse Practitioner Family
DX: I13.0 Hypertensive heart and chronic kidney disease with heart failure and stage 1 through stage 4 chronic kidney disease, or unspecified chronic kidney disease (principal); I50.33 Acute on chronic diastolic (congestive) heart failure; N18.4 Chronic kidney disease, stage 4 (severe); I24.8 Other forms of acute ischemic heart disease; I48.92 Unspecified atrial flutter; E11.22 Type 2 diabetes mellitus with diabetic chronic kidney disease; E11.65 Type 2 diabetes mellitus with hyperglycemia; D63.1 Anemia in chronic kidney disease; I25.10 Atherosclerotic heart disease of native coronary artery without angina pectoris; I45.10 Unspecified right bundle-branch block; I73.9 Peripheral vascular disease, unspecified; Z95.1 Presence of aortocoronary bypass graft; J44.9 Chronic obstructive pulmonary disease, unspecified; E78.5 Hyperlipidemia, unspecified; M47.9 Spondylosis, unspecified; I07.1 Rheumatic tricuspid insufficiency; Z79.82 Long term (current) use of aspirin; Z79.84 Long term (current) use of oral hypoglycemic drugs; Z79.899 Other long term (current) drug therapy; Z87.891 Personal history of nicotine dependence
CPT/HCPCS: 71020; 78452; 80048; 80069; 82550; 82553; 82962; 83735; 83880; 84484; 85025; 85610; 85730; 93005; 93017; 99285; A9270-GY; A9502; C8929; J0360; Q9957